=== PATIENT | female | born 1965 | race Caucasian/White ===

== ENCOUNTER 2017-02-05 10:36 | Observation (INO) ==
--- NOTE | 2017-02-05 12:01 | Anesthesia Evaluation PreOp ---
Date of Encounter: 02/05/17 Time of Encounter: 12:00 - Past History Planned Operation: Lap Appendectomy Cardiac History: Denies any Significant Hx Pulmonary History: Former smoker FREIGHT ROUTER History: Denies Any Significant HX Other Medical History: Denies Any Significant HX Anesthesia History: No Prior Anesthetic Complications : No Alcohol Use: occasionally Drug use: none Medications and Allergies Multivitamin [Multi-Day Vitamins] 1 tab PO DAILY 10/05/16 [History] Allergies Penicillins [PCN] Allergy (Verified 02/05/17 06:58) Rash Sulfa (Sulfonamide Antibiotics) Allergy (Verified 02/05/17 06:58) Rash - Meds/Allergy Pre-op Review Medications Reviewed: Yes Allergies Reviewed: Yes Beta Blockers on Current Med List: No Anesthesia Results - Labs Laboratory Tests 02/05/17 02/05/17 02/05/17 07:10 07:10 08:00 Hgb 11.2 L Hct 35.0 L Plt Count 329 Sodium 141 Potassium 3.5 BUN 14 Creatinine 0.95 Urine Test Negative Anesthesia Exam Height: 5'3 Weight: 185 lbs NPO (# of Hours): MN Pain Scale: 0 - HEENT Pupil (Motor): Pupils equal, EOMI Mallampati: II Teeth: Normal Oral Opening: Greater than 3 - FREIGHT ROUTER LOC: Oriented FREIGHT ROUTER Motor: Normal RUE, Normal LUE, Normal RLE, Normal LLE, Normal Face FREIGHT ROUTER Sensory: Normal: RUE, LUE, RLE, LLE, Face - Cardiac Rhythm: Regular Murmur: None JVD: No Carotid Bruit: No - Pulmonary Breath Sounds: bilateral Clear Respiratory Effort: Symmetrical Anesthesia Assess/Plan ASA Score: 1 Modified Jason Scale for Level of Consciousness: Cooperative, oriented, and tranquil Anesthetic Plan: General Monitoring Plan: Standard Monitors Recovery Plan: PACU (Discussed GA, agrees to proceed)
[2017-02-05] MEDS ORDERED: Ondansetron 4 MG/2 ML VIAL IVP ONE (12:02)
[2017-02-05] MEDS ORDERED: *HR* Promethazine 25 MG/ML VIAL IVP PRN ×2 (12:02→12:59)
[2017-02-05] MEDS ORDERED: Famotidine 20 MG/2 ML VIAL ONE (12:05)
[2017-02-05] MEDS ORDERED: Acetaminophen IV 1,000 MG/100 ML INFUS..BTL ONE (12:05)
[2017-02-05] MEDS ORDERED: *HR* FentaNYL (PF) 100 MCG/2 ML VIAL ONE (12:08)
[2017-02-05] MEDS ORDERED: *HR* Propofol 200 MG/20 ML VIAL IVP ONE (12:08)
[2017-02-05] MEDS ORDERED: Lidocaine -MPF 4% 5 ML AMPUL ONE (12:09)
--- NOTE | 2017-02-05 12:18 | General Surg History&Physical ---
Date of Encounter: 02/05/17 Time of Encounter: 12:16 Assessment and Plan (1) Appendicitis Current Visit: No Status: Acute Plan for laparoscopic appendectomy. Risks were explained and she agrees to proceed. The assessment and plan as outlined above was discussed with the patient and/or family members who expressed understanding and agreement. All questions were answered. Qualifiers: Acute appendicitis type: with localized peritonitis Qualified Code(s): K35.3 - Acute appendicitis with localized peritonitis History of Present Illness HPI: Ms. Morales is a 51 year old female with 48 hours of RLQ pain. She denies any N/ V. She reports the pain is 10/10 with movement. States it is getting worse. Past Med Surg Social Fam HX - Past Medical History Medical history: cancer Psychiatric history: no psych history - Past Surgical History Surgical History: no surgical history - Social History Smoking Status: Former smoker Smokeless Tobacco Status: No Alcohol use: occasionally Drug use: none Medications and Allergies Multivitamin [Multi-Day Vitamins] 1 tab PO DAILY 10/05/16 [History] Allergies Penicillins [PCN] Allergy (Verified 02/05/17 06:58) Rash Sulfa (Sulfonamide Antibiotics) Allergy (Verified 02/05/17 06:58) Rash Review of Systems All systems PM: reviewed and no additional remarkable complaints except as stated All systems PM: A 10-system review of systems was performed and is negative for pertinent findings except as documented above in the HPI. General Surgery Exam - General physical appearance well nourished, no distress - Eyes PERRL, normal ocular movement - Neck trachea midline - Respiratory normal respiratory effort, clear to percussion - Cardiovascular Cardiovascular exam: Present: RRR - Abdomen Abdomen general surgery: Present: soft, tender Abdominal Tenderness: Present: RLQ - Integumentary Integumentary general surgery: Present: warm and dry, no abnormal pigmentation - Neurologic Present: CN 2-12 grossly intact, normal sensation - Musculoskeletal Present: normal gait, normal posture - Psychiatric Psychiatric general surgery: Present: A&Ox3, appropriate Results - Labs All other labs normal. - Imaging CT scan - abdomen: image reviewed CT scan - pelvis: image reviewed
--- NOTE | 2017-02-05 12:21 | Operative Note ---
Date of procedure: 02/05/17 Pre-op diagnosis: appendicitis Post-op diagnosis: same Procedure: Laparoscopic appendectomy Anesthesia: TRESSA Surgeon: Siddharth Arora Estimated blood loss (cc): 5 Specimen: appendix Condition: stable Disposition: floor Procedure in Detail: After informed consent, patient was taken to the operating room placed in supine position. After adequate sedation anesthesia the abdomen was prepped and draped. A 12 mm cannula was placed in the umbilicus. A 5 mm cannulas placed in suprapubic region and the left lower quadrant. Camera was inserted and the abdomen after a pneumoperitoneum. 2 Iris graspers were used to identify the base of the appendix. A appendiceal window was created. A FRANKIE endoscopic stapler was placed across the base. The tip was perforated with stool leaking from the tip. A vascular load was placed across the mesoappendix. Once the appendix was was placed in an Endobag and removed through the umbilicus. The right lower quadrant was suctioned dry no bleeding was identified. A 19 belarusian drain was placed in the pelvis. The remainder the pneumoperitoneum was evacuated. The umbilicus was closed with an 0 Vicryl suture in [id number] fashion. Skin was closed with 4-0 Vicryl suture and Dermabond.
[2017-02-05] MEDS ORDERED: Dexamethasone 4 MG/ML VIAL ONE (12:22)
[2017-02-05] MEDS ORDERED: Ondansetron 4 MG/2 ML VIAL ONE (12:22)
[2017-02-05] MEDS ORDERED: Lidocaine -MPF 2% 2 ML VIAL ONE (12:22)
[2017-02-05] MEDS ORDERED: CefOXitin 2,000 MG VIAL IVPB ONE (12:23)
[2017-02-05] MEDS ORDERED: Ketorolac 30 MG/ML VIAL ONE (12:41)
[2017-02-05] MEDS ORDERED: Neostigmine Methylsulfate 3 MG/3 ML SYRINGE ONE (12:41)
[2017-02-05] MEDS ORDERED: Ondansetron 4 MG/2 ML VIAL IVP PRN (12:59)
[2017-02-05] MEDS ORDERED: *HR* Morphine 2 MG/ML SYRINGE IVP PRN (12:59)
[2017-02-05] MEDS ORDERED: *HR* HYDROmorphone (PF) 1 MG/ML SYRINGE IVP PRN (13:07)
--- NOTE | 2017-02-05 13:42 | Anesthesia Evaluation Post Op ---
Date of Encounter: 02/05/17 Time of Encounter: 13:45 - Vital Signs Vital Signs: Vital Signs/O2 Sat/Glucose, Most Current Temp Pulse Resp BP Pulse Ox 02/05/17 13:34 85 16 105/77 97 02/05/17 13:24 82 16 101/70 96 02/05/17 13:14 98.6 F 96 16 116/76 96 - Lungs Lungs: Clear Ascult./Percussion - Airway Airway: Non-obstructed - Cardiovascular Regular Rate - Mental Status Mental Status: Alert & Oriented, Answers Appropriately - Pain Pain Scale: 1 - Nausea Vomiting Nausea Vomiting: Not Present - Hydration Hydration: NPO - Discharge PostOp Status: Transfer Patient to floor
[2017-02-05] MEDS: 0.9 % Sodium Chloride 1,000 ML IVC SCH (14:22)
[2017-02-05] MEDS: cefOXitin 2,000 MG in D5% in Water (Mini-Bag+) 100 ML IVPB SCH (19:44)
[2017-02-06] MEDS: cefOXitin 2,000 MG in D5% in Water (Mini-Bag+) 100 ML IVPB SCH ×3 (03:54→20:25)
[2017-02-06] MEDS: 0.9 % Sodium Chloride 1,000 ML IVC SCH ×2 (03:55→17:39)
[2017-02-06] MEDS: Pantoprazole 40 MG VIAL IVP SCH (07:37)
--- NOTE | 2017-02-06 15:55 | General Surgery Progress Note ---
Date of Encounter: 02/06/17 Time of Encounter: 15:53 - Assessment and Plan (1) Appendicitis Current Visit: No Status: Acute Postoperative day #1 from laparoscopic appendectomy with Dr. Arora Maintain bowel rest while awaiting return of bowel function May have ice chips and 1 Popsicle per shift IV antibiotics- cefoxitin Supportive care and pain control- Toradol scheduled every 6 hours for the next 48 hours Incentive spirometer every 1 hour while awake Increase activity and ambulate and hallways 3 times a day Remove Vinson catheter Qualifiers: Acute appendicitis type: with localized peritonitis Qualified Code(s): K35.3 - Acute appendicitis with localized peritonitis (2) DVT prophylaxis Current Visit: Yes Status: Acute Heparin 5000 units subcutaneous twice daily for DVT prophylaxis Ambulate hallways 3 times per day Subjective Patient reports: feels better, still having pain (surgical), pain is less, flatus (2 episodes of flatus), no bowel movement, afebrile Objective Vital Signs - Last 8 Hours Temp Pulse Resp BP Pulse Ox 02/06/17 15:46 90 16 109/71 93 02/06/17 10:58 97.9 F 90 16 121/74 95 Intake and Output 02/05/17 02/06/17 02/06/17 23:59 07:59 15:59 Intake Total 331 / 331 869 / 869 Output Total 475 / 475 345 / 345 380 / 380 Balance -144 / -144 524 / 524 -380 / -380 Intake: IV Fluids 331 / 331 869 / 869 0.9 % Sodium Chloride 1, 231 / 231 769 / 769 000 ML @ 75 mls/hr IVC . [id number] SANJAY Rx#: [id number] Mefoxin 2,000 MG In 100 / 100 100 / 100 Dextrose 5% (Minibag+) 100 ML 100 ML @ 200 mls/ hr IVPB Q8H SANJAY Rx#: [id number] Oral 0 / 0 0 / 0 Output: Urine 0 / 0 0 / 0 200 / 200 Other 50 / 50 60 / 60 30 / 30 Catheter 375 / 375 225 / 225 150 / 150 Wound Drainage 50 / 50 60 / 60 Lower Abdomen 50 / 50 60 / 60 Other: Meal NPO Percent of Meal Consumed 0% # Bowel Movements 0 Weight 88.3 kg Blood Glucose* 116 102 95 Patient Weight 02/06/17 23:59 Weight 88.3 kg - General physical appearance well developed, well nourished, no distress - Eyes normal ocular movement - ENT normal mucosa, atraumatic, normocephalic - Neck Neck exam: trachea midline - Respiratory normal respiratory effort, clear to auscultation - Cardiovascular Cardiovascular exam: Present: RRR - Abdomen Abdomen: Present: soft, tender (Expected postoperative tenderness), wound (ESTEE drain to bulb suction with serosanguineous drainage noted) - Incision Incision: Present: clean and dry, intact - Genitourinary other (Vinson catheter to straight drain with clear, yellow urine) - Neurologic CN 2-12 grossly intact - Psychiatric oriented to time, oriented to person, oriented to place, speech is normal, memory intact Consult Discharge Plan - Plan Referrals: Valencia Thompson, CIVIL ENGINEERING DRAFTSPERSON [Primary Care Provider] - - Attending Attestation I examined this patient and my medical decision-making was reviewed with the MANAGER STUDY/PA/Advanced Practice Nurse/Resident Physician. I agree with the documented findings, disposition and treatment plan as described except to the extent set forth below.
[2017-02-06] MEDS: Ketorolac 15 MG/ML VIAL IVP SCH (17:37)
[2017-02-06] MEDS: *HR* Heparin 5,000 UNIT/ML VIAL SQ SCH (17:38)
[2017-02-07] MEDS: Ketorolac 15 MG/ML VIAL IVP SCH ×3 (00:36→12:23)
[2017-02-07] MEDS: 0.9 % Sodium Chloride 1,000 ML IVC SCH (04:33)
[2017-02-07] MEDS: cefOXitin 2,000 MG in D5% in Water (Mini-Bag+) 100 ML IVPB SCH ×2 (04:34→12:25)
[2017-02-07] MEDS: *HR* Heparin 5,000 UNIT/ML VIAL SQ SCH (06:30)
[2017-02-07] MEDS: Pantoprazole 40 MG VIAL IVP SCH (06:30)
[2017-02-07 07:32] LABS: Basophils % 0.5 %; Eosinophils % 0.2 %; Hematocrit 27.9 % (35.3-44.9); Hemoglobin 8.3 g/dL (11.5-15.4); Immature Granulocytes % 0.6 % (0-4); Lymphocytes # 1.1 K/mcL (0.6-4.6); Mean Corpuscular HGB Conc 29.7 g/dL (31.6-35.5); Mean Corpuscular Hemoglobin 24.2 pg (28.0-33.3); Mean Corpuscular Volume 81.3 fL (83.0-100.0); Mean Platelet Volume 10.9 fL (9.4-12.4); Monocytes # 0.5 K/mcL (0.0-1.3); Neutrophils # 6.9 K/mcL (1.6-8.9); Platelet Count 236 K/mcL (140-400); Red Blood Count 3.43 M/mcL (3.82-4.97); Red Cell Distribution Width 15.6 % (11.5-14.5); Segmented Neutrophils % 79.7 %
[2017-02-07 07:38] LABS: BUN/Creatinine Ratio 15 (6-26); Blood Urea Nitrogen 11 mg/dL (7-20); Carbon Dioxide 26 mEq/L (19-29); Chloride 108 mEq/L (98-109); Glucose 88 mg/dL (70-99); Osmolality,Calculated 285 (280-300); Potassium 3.5 mEq/L (3.5-4.5); Sodium 138 mEq/L (136-145); eGFR For African Americans > 60 (> 60); eGFR For Non-African Americans > 60 (> 60)
[2017-02-07] MEDS ORDERED: Acetaminophen 325 MG TABLET PO PRN (11:12)
[2017-02-07] MEDS ORDERED: *HR* OxyCODONE/APAP 5/325 TABLET PO PRN (11:12)
--- NOTE | 2017-02-07 11:24 | Discharge Summary ---
Date of Encounter: 02/07/17 Time of Encounter: 11:20 - Discharge Diagnosis (1) Appendicitis Priority: Primary Status: Resolved Qualifiers: Appendicitis type: acute appendicitis Acute appendicitis type: with localized peritonitis Qualified Code(s): K35.3 - Acute appendicitis with localized peritonitis - Discharge Medications Prescriptions: OxyCODONE/APAP 5/325 [Percocet 5/325 MG] 1 each PO Q6HR PRN #30 tablet PRN Reason: Moderate Pain Ciprofloxacin [Cipro] 500 mg PO BID #14 tablet Docusate [Colace] 100 mg PO BID #30 capsule Ibuprofen 800 mg PO TID #50 tablet metroNIDAZOLE [Flagyl] 500 mg PO BID #14 tablet Home Medications: Multivitamin [Multi-Day Vitamins] 1 tab PO DAILY 10/05/16 [History] Ciprofloxacin [Cipro] 500 mg PO BID #14 tablet 02/07/17 [Rx] Docusate [Colace] 100 mg PO BID #30 capsule 02/07/17 [Rx] Ibuprofen 800 mg PO TID #50 tablet 02/07/17 [Rx] OxyCODONE/APAP 5/325 [Percocet 5/325 MG] 1 each PO Q6HR PRN #30 tablet 02/07/17 [Rx] metroNIDAZOLE [Flagyl] 500 mg PO BID #14 tablet 02/07/17 [Rx] Allergies/Adverse Reactions: Allergies Penicillins [PCN] Allergy (Verified 02/05/17 16:39) Rash Sulfa (Sulfonamide Antibiotics) Allergy (Verified 02/05/17 16:39) Rash General Surgery Exam Initial Vital Signs Temp Pulse Resp BP Pulse Ox 98.6 F 96 16 116/76 96 02/05/17 13:14 02/05/17 13:14 02/05/17 13:14 02/05/17 13:14 02/05/17 13:14 - General physical appearance well developed, well nourished, no distress - Eyes normal ocular movement - ENT normal mucosa, atraumatic, normocephalic - Neck trachea midline - Respiratory normal respiratory effort, clear to auscultation - Cardiovascular Cardiovascular exam: Present: RRR, 15, 16 - Abdomen Abdomen general surgery: Present: bowel sounds present, soft, tender (Expected postoperative tenderness), wound (ESTEE drain to bulb suction with serosanguineous drainage noted) - Incision Incision: Present: clean and dry, intact - Integumentary Integumentary general surgery: Present: warm and dry - Neurologic Present: CN 2-12 grossly intact - Musculoskeletal Present: normal gait, normal posture - Psychiatric Psychiatric general surgery: Present: appropriate, oriented to person, oriented to place, oriented to time, speech is normal, memory intact Date of admission: 02/05/17 10:43 Primary care physician: Valencia Thompson CNP Discharging clinician: Siddharth Arora (Fina Colindres) Anticipated date of discharge: 02/07/17 - Patient Status Disposition: Home, Self-Care Condition: Good Functional capacity at discharge: independent ambulation Overall status at discharge: patient is progressing back to baseline - Discharge Instructions Follow Up With: Susan Colindres CNP [Advanced Practice Nurse] - 02/13/17 9:00 am (Surgery follow-up) Valencia Thompson CNP [Primary Care Provider] - 02/14/17 4:00 pm (2 weeks hospital follow-up) Additional Instructions: #1 may shower, no tub bath for 2 weeks #2 wash incisions with soap and water and pat dry daily #3 no lifting, pushing, pulling more than 15 pounds for the next 2 weeks #4 no driving until off narcotics for 24 hours and able to safely react in the car #5 may climb stairs ESTEE drain care- wash around drain was soap and water and pat dry daily. Apply split 4 x 4 gauze and tape to secure daily after showers. Empty drain 2 times daily and as needed. Record outputs on drain record and bring to follow-up appointment on 02/13/2017 with Susan Colindres CNP. - Diet and Activity Activity: increase activity as tolerated Diet: advance to your usual diet - Hospital Course Hospital course: Ms. Morales is a 51 year old female presented to the hospital with complaints of abdominal discomfort. She was found to have acute appendicitis. She was started on IV antibiotics and taken to the operating room for laparoscopic appendectomy with drain placement with Dr. Arora. She required postoperative antibiotics due to fecal contamination. She did experience a mild postoperative ileus. She remained on bowel rest and supportive care including IV fluids while awaiting return of bowel function. With return of bowel function, she was started on clear liquid diet and slowly advanced as tolerated. Her pain is well-controlled. Vital signs are stable and afebrile. Her white blood cell count is normal. She is ambulating and voiding without difficulty. We will begin discharge planning to home and plan for outpatient follow-up in the next 7-10 days. - Time Spent with Patient Total time spent providing and/or coordinating discharge services: Less than 30 minutes Labs on day of discharge: Labs from last 24 hours 02/07/17 02/07/17 02/07/17 06:21 06:21 05:23 WBC 8.7 RBC 3.43 L Hgb 8.3 L D Hct 27.9 L MCV 81.3 L MCH 24.2 L MCHC 29.7 L RDW 15.6 H Plt Count 236 MPV 10.9 Immature Gran % 0.6 Seg Neutrophils % 79.7 Lymphocytes % 13.0 Monocytes % 6.0 Eosinophils % 0.2 Basophils % 0.5 Neutrophils # 6.9 Lymphocytes # 1.1 Monocytes # 0.5 Eosinophils # 0.0 Basophils # 0.0 Sodium 138 Potassium 3.5 Chloride 108 Carbon Dioxide 26 BUN 11 Creatinine 0.73 Est GFR ( Amer) > 60 Est GFR (Non-Af Amer) > 60 BUN/Creatinine Ratio 15 Glucose 88 POC Glucose 104 H Calculated Osmolality 285 Calcium 8.0 L 02/06/17 02/06/17 02/06/17 23:14 16:44 11:05 WBC RBC Hgb Hct MCV MCH MCHC RDW Plt Count MPV Immature Gran % Seg Neutrophils % Lymphocytes % Monocytes % Eosinophils % Basophils % Neutrophils # Lymphocytes # Monocytes # Eosinophils # Basophils # Sodium Potassium Chloride Carbon Dioxide BUN Creatinine Est GFR ( Amer) Est GFR (Non-Af Amer) BUN/Creatinine Ratio Glucose POC Glucose 83 87 95 H Calculated Osmolality Calcium 02/06/17 02/05/17 05:06 23:37 WBC RBC Hgb Hct MCV MCH MCHC RDW Plt Count MPV Immature Gran % Seg Neutrophils % Lymphocytes % Monocytes % Eosinophils % Basophils % Neutrophils # Lymphocytes # Monocytes # Eosinophils # Basophils # Sodium Potassium Chloride Carbon Dioxide BUN Creatinine Est GFR ( Amer) Est GFR (Non-Af Amer) BUN/Creatinine Ratio Glucose POC Glucose 102 H 116 H Calculated Osmolality Calcium - Attending Attestation I examined this patient and my medical decision-making was reviewed with the PRINTING ASSISTANT/PA/Advanced Practice Nurse/Resident Physician. I agree with the documented findings, disposition and treatment plan as described except to the extent set forth below.
[2017-02-07 12:11] VITALS: BP 120/78
== END 2017-02-07 16:37 | disposition home or self-care (01) ==
LOC: 3ANU
PROVIDERS: ADMIT Surgery; ATTEND Surgery